=== PATIENT | female | born 1960 | race Caucasian/White ===

== ENCOUNTER 2023-01-19 17:18 | Emergency (ER) | payer OTHER ==
[~2023-01-19] VITALS: Ht 167.6 cm; Wt 72.6 kg
== END 2023-01-19 22:14 | disposition home or self-care (01) ==
LOC: ER 17:18
DX: S99.822A Other specified injuries of left foot, initial encounter (principal); W18.30XA Fall on same level, unspecified, initial encounter; Y93.11 Activity, swimming; Y92.59 Other trade areas as the place of occurrence of the external cause